=== PATIENT | female | born 1960 | race Caucasian/White ===

== ENCOUNTER 2020-05-04 19:05 | Emergency (ER) | payer OTHER ==
[2020-05-04] MEDS ORDERED: FAMOTIDINE INJ/PF 20 MG/2 ML SDV IV ONE (19:12)
[2020-05-04] MEDS ORDERED: EPINEPHRINE INJ/PF 1 MG/1 ML AMPULE IM ONE (19:12)
[2020-05-04] MEDS ORDERED: METHYLPREDNISOLONE INJ 125 MG/2 ML SDV IV ONE (19:12)
--- NOTE | 2020-05-04 19:20 | ER Document Report ---
ED Medical Screen (RME) - General Mode of Arrival: Wheelchair Information source: Patient TRAVEL OUTSIDE OF THE [place] IN LAST 30 DAYS: No - General Chief Complaint: Allergic Reaction Stated Complaint: possible allergic reaction Time Seen by Provider: 05/04/20 19:12 Primary Care Provider: ANTOINE WEST DO [Primary Care Provider] - Follow up as needed Notes: 59-year-old female presented to ED for angioedema. She states she ate a turkey and cheese sandwich on bread about 1130 12:00 and by 1230 her tongue was itching and feeling funny. She states she is taken Benadryl twice since then. She states now her tongue is very swollen. She is having a hard time talking around her tongue. She states she did not know she was allergic to anything in this. I have ordered Solu-Medrol Pepcid and epinephrine. I will also order labs EKG and monitor. I have spoken to the active barefoot concerning this patient. She is getting put on the monitor bloods been drawn medicines are being given. She will be seen by another provider. She had Benadryl today at 5 PM and 6 PM I have greeted and performed a rapid initial assessment of this patient. A comprehensive ED assessment and evaluation of the patient, analysis of test results and completion of medical decision making process will be conducted by an additional ED providers. (TRINA GROSS) - Related Data Allergies/Adverse Reactions: Sulfa (Sulfonamide Antibiotics) Allergy (Verified 04/26/16 13:14) Past Medical History Endocrine Medical History: Reports: Hx Hypothyroidism Past Surgical History: Reports: Hx Section - x3 Physical Exam - Vital signs Vitals: Temp Pulse Resp BP Pulse Ox 98.6 F 102 H 18 167/92 H 95 05/04/20 19:10 05/04/20 19:10 05/04/20 19:10 05/04/20 19:10 05/04/20 19:10 Course - Vital Signs Vital signs: Temp Pulse Resp BP Pulse Ox 97.9 F 102 H 20 145/83 H 95 05/04/20 19:20 05/04/20 19:10 05/04/20 19:15 05/04/20 19:15 05/04/20 19:15 Doctor's Discharge - Discharge Referrals: ZIERMANN,ANTOINE A, DO [Primary Care Provider] - Follow up as needed
[2020-05-04] MEDS ORDERED: DIPHENHYDRAMINE HCL 50 MG/ML VIAL IV ONE (19:36)
[2020-05-04 19:42] LABS: ABSOLUTE BASOPHILS # (AUTO) 0.1 10^3/uL (0.0-0.2); ABSOLUTE EOSINOPHILS # (AUTO) 0.2 10^3/uL (0.0-0.6); ABSOLUTE LYMPHOCYTES (AUTO) 1.9 10^3/uL (0.5-4.7); ABSOLUTE MONOCYTES (AUTO) 0.4 10^3/uL (0.1-1.4); ABSOLUTE NEUT (AUTO) 5.3 10^3/uL (1.7-8.2); BASOPHILS % (AUTO) 0.7 % (0-2); EOSINOPHILS % (AUTO) 2.1 % (0-6); HEMATOCRIT 40.9 % (36.0-47.0); HEMOGLOBIN 14.3 g/dL (12.0-15.5); LYMPHOCYTES % (AUTO) 23.8 % (13-45); MEAN CORPUSCULAR HEMOGLOBIN 30.7 pg (27.0-33.4); MEAN CORPUSCULAR HGB CONC 34.9 g/dL (32.0-36.0); MEAN CORPUSCULAR VOLUME 88 fl (80-97); MONOCYTES % (AUTO) 5.1 % (3-13); PLATELET COUNT 207 10^3/uL (150-450); RED BLOOD COUNT 4.65 10^6/uL (3.72-5.28); RED CELL DISTRIBUTION WIDTH 13.1 % (11.5-14.0); SEGMENTED NEUTROPHILS % (AUTO) 68.3 % (42-78); TOTAL CELLS COUNTED % (AUTO) 100 %; WHITE BLOOD COUNT 7.8 10^3/uL (4.0-10.5)
--- NOTE | 2020-05-04 19:43 | ER Document Report ---
ED General - General Chief Complaint: Allergic Reaction Stated Complaint: possible allergic reaction Time Seen by Provider: 05/04/20 19:12 Primary Care Provider: ALEXI VALE DO [ASSOCIATE] - Follow up as needed ANTOINE WEST DO [NO LOCAL MD] - Follow up as needed Mode of Arrival: Wheelchair Information source: Patient Notes: MY NOTES 59-year-old female arrives with chief complaint of a swollen tongue and bite to the right lateral tongue; patient reports this occurred since 12 noon after eating a turkey sandwich with a wiring and bread and ranch dressing with cheese. By 1600 4 PM she told her that her tongue was swelling and by 1700 she was ready to go to the urgent care and from there she was sent to this facility. Patient reports 3 weeks ago she had a sandwich with bread as well with barbecue sauce at [facility] and had the same reaction which self resolved after she took some Benadryl later that afternoon and by the next morning she was better." Patient now has some slurring of speech because of her swollen tongue and she reports she has never had any similar symptoms . Patient reports she does not think it involves pineapple because she did not have any bread today. She also reports she has severe allergic reaction when she was in her 30s in [place] and had airway compromise after taking sulfa drugs. She denies any use of any TORITO inhibitors or blood pressure medicine or sulfa drugs recently. She also denies any new toothpaste mouthwashes dental floss. Patient does report she drinks the same line Chardonnay for years and denies any reaction from that. I advised her some winds do have more sulfites in them and be aware of this in the future. Patient advises at 2039 that she recalled hav ing a delarosa Sprite both 3 weeks ago and again today. TRAVEL OUTSIDE OF THE [place] IN LAST 30 DAYS: No - HPI Onset: This afternoon Onset/Duration: Sudden, Persistent Quality of pain: Achy Severity: Moderate Pain Level: 2 Exacerbated by: Food Relieved by: Denies Similar symptoms previously: Yes Recently seen / treated by doctor: No - Related Data Allergies/Adverse Reactions: Sulfa (Sulfonamide Antibiotics) Allergy (Verified 04/26/16 13:14) Past Medical History - General Information source: Patient - Social History Smoking Status: Never Smoker Cigarette use (# per day): No Chew tobacco use (# tins/day): No Smoking Education Provided: No Frequency of alcohol use: None Drug Abuse: None Lives with: Family Family History: Reviewed & Not Pertinent Patient has suicidal ideation: No Patient has homicidal ideation: No Endocrine Medical History: Reports: Hx Hypothyroidism Past Surgical History: Reports: Hx Section - x3 Review of Systems - Review of Systems Constitutional: See HPI, Weakness EENT: No symptoms reported, Throat pain, Throat swelling, Mouth swelling, Other - tongue Cardiovascular: No symptoms reported Respiratory: No symptoms reported Gastrointestinal: No symptoms reported Genitourinary: No symptoms reported Female Genitourinary: No symptoms reported Musculoskeletal: No symptoms reported Skin: No symptoms reported Hematologic/Lymphatic: No symptoms reported Neurological/Psychological: No symptoms reported -: Yes All other systems reviewed and negative Physical Exam - Vital signs Vitals: Temp Pulse Resp BP Pulse Ox 98.6 F 102 H 18 167/92 H 95 05/04/20 19:10 05/04/20 19:10 05/04/20 19:10 05/04/20 19:10 05/04/20 19:10 Interpretation: Normal, Hypertensive, Tachycardic - General General appearance: Appears well, Alert - HEENT Head: Normocephalic, Atraumatic Eyes: Normal Pupils: PERRL Sinus: Normal Nasal: Normal Mouth/Lips: Angioedema Mucous membranes: Dry Teeth diagram: 1 - purpuric/traumatic bite with diffuse edema Pharynx: Uvular edema Neck: Anterior cervical chain - Respiratory Respiratory status: No respiratory distress Chest status: Nontender Breath sounds: Normal Chest palpation: Normal - Cardiovascular Rhythm: Regular Heart sounds: Normal auscultation Murmur: No - Abdominal Inspection: Normal Distension: No distension Bowel sounds: Normal Tenderness: Nontender Organomegaly: No organomegaly - Rectal Hemorrhoids: Other - deferred - Genitourinary Bimanuel exam: Other - deferred - Back Back: Normal, Nontender - Extremities General upper extremity: Normal inspection, Nontender, Normal color, Normal ROM, Normal temperature General lower extremity: Normal inspection, Nontender, Normal color, Normal ROM, Normal temperature, Normal weight bearing. No: Nelda's sign - Neurological Neuro grossly intact: Yes Cognition: Normal Orientation: AAOx4 Ferguson Coma Scale Eye Opening: Spontaneous Ferguson Coma Scale Verbal: Oriented Phil Coma Scale Motor: Obeys Commands Phil Coma Scale Total: 15 Speech: Normal Motor strength normal: LUE, RUE, LLE, RLE Sensory: Normal - Psychological Associated symptoms: Normal affect, Normal mood - Skin Skin Temperature: Warm Skin Moisture: Dry Skin Color: Normal Course - Vital Signs Vital signs: Temp Pulse Resp BP Pulse Ox 97.9 F 102 H 17 129/66 H 96 05/04/20 19:20 05/04/20 19:10 05/04/20 21:00 05/04/20 21:00 05/04/20 21:00 - Laboratory Result Diagrams: 05/04/20 19:18 05/04/20 19:18 Laboratory results interpreted by me: 05/04/20 05/04/20 19:18 19:18 Glucose 111 H TSH 0.09 L Critical Care Note - Critical Care Note Comments: Tongue and speech improved. Blood pressure continues to be elevated Discharge - Discharge Clinical Impression: Tongue edema Allergic reaction Qualifiers: Encounter type: initial encounter Qualified Code(s): T78.40XA - Allergy, uns pecified, initial encounter Condition: Stable Disposition: HOME, SELF-CARE Additional Instructions: Follow-up with ENT Dr. Vale on Wednesday at 1 PM 1300 hrs. in his office and use Benadryl and Pepcid [id number] 1 tablet each 3 times a day. Encourage fluids and avoid excessively hot and cold liquids may use cool liquids. Try to avoid delarosa Sprite Referrals: ANTOINE WEST DO [NO LOCAL MD] - Follow up as needed ALEXI VALE DO [ASSOCIATE] - Follow up as needed
--- NOTE | 2020-05-04 19:55 | RADIOLOGY REPORT (SQ) ---
EXAM DESCRIPTION: CHEST SINGLE VIEW IMAGES COMPLETED DATE/TIME: 05/04/2020 7:31 pm REASON FOR STUDY: #1 SYNCOPE COMPARISON: None. NUMBER OF VIEWS: One view. TECHNIQUE: Single frontal radiographic view of the chest acquired. LIMITATIONS: None. FINDINGS: LUNGS AND PLEURA: No opacities, masses or pneumothorax. No pleural effusion. MEDIASTINUM AND HILAR STRUCTURES: No masses. Contour normal. HEART AND VASCULAR STRUCTURES: Heart normal in size. Normal vasculature. BONES: No acute findings. HARDWARE: None in the chest. OTHER: No other significant finding. IMPRESSION: NO SIGNIFICANT RADIOGRAPHIC FINDING IN THE CHEST. TECHNICAL DOCUMENTATION: JOB ID: [id number] 2010 All [employer]- All Rights Reserved Reading location - IP/workstation name: [email or web address]
[2020-05-04 19:58] LABS: ALBUMIN 4.6 g/dL (3.5-5.0); ALKALINE PHOSPHATASE 59 U/L (38-126); ANION GAP 14 (5-19); ASPARTATE AMINO TRANSFERASE 26 U/L (14-36); BILIRUBIN,DIRECT 0.3 mg/dL (0.0-0.4); BILIRUBIN,TOTAL 0.5 mg/dL (0.2-1.3); BLOOD UREA NITROGEN 18 mg/dL (7-20); CARBON DIOXIDE 23 mmol/L (22-30); CHLORIDE 106 mmol/L (98-107); GLUCOSE 111 mg/dL (75-110); POTASSIUM 4.1 mmol/L (3.6-5.0); TOTAL PROTEIN 7.2 g/dL (6.3-8.2)
[2020-05-04] MEDS ORDERED: DEXAMETHASONE SOD PHOS INJ 10 MG/1 ML VIAL IV ONE (20:22)
--- NOTE | 2020-05-04 20:22 | RADIOLOGY REPORT (SQ) ---
EXAM DESCRIPTION: RadLex: CT NECK WITHOUT IV CONTRAST CLINICAL HISTORY: 59 years Female; swollen tongue; TECHNIQUE: Noncontrast CT soft tissue neck All CT scans at this facility use dose modulation, iterative reconstruction, and/or weight based dosing when appropriate to reduce radiation dose to as low as reasonably achievable. COMPARISON: None. FINDINGS: No acute soft tissue edema. No focal lesion is identified. No parapharyngeal edema. Epiglottis is normal. No retropharyngeal edema. No airway compromise. Salivary glands are unremarkable. Thyroid normal. C5-C6: Osteophytic ridging. Left foraminal stenosis. C6-C7: Osteophytic ridging. Right foraminal stenosis. C7-T1: Bilateral facet arthropathy with 2 mm anterior subluxation. Mild bilateral foraminal stenosis. IMPRESSION: 1. No focal soft tissue edema or mass on this noncontrast CT 2. No airway compromise 3. Degenerative changes of the lower cervical spine.
[2020-05-04] MEDS ORDERED: CEFTRIAXONE INJ 1000 MG VIAL IV ONE (20:29)
[2020-05-04 21:04] VITALS: BP 129/66
--- NOTE | 2020-05-05 19:15 | EKG REPORT ---
SEVERITY:- BORDERLINE ECG - SINUS RHYTHM PROBABLE LEFT ATRIAL ABNORMALITY : Confirmed by: Juanjose Butler MD 05-May-2020 19:14:05
== END 2020-05-04 21:33 | disposition home or self-care (01) ==
LOC: ER 19:05
DX: T78.3XXA Angioneurotic edema, initial encounter (principal); S01.552A Open bite of oral cavity, initial encounter; X58.XXXA Exposure to other specified factors, initial encounter; R53.1 Weakness; I10 Essential (primary) hypertension; Z88.2 Allergy status to sulfonamides
CPT/HCPCS: 93005; 99285; 96375; 96365; 86900; 86901; 36415; 86850; 84443; 85025; 80053; 71045; 70490; 93010; J1200; J0171; J2930; J0696; S0028; J1100